=== PATIENT | male | born 1960 | race Caucasian/White ===

== ENCOUNTER 2020-04-07 15:31 | Emergency (ER) | payer OTHER ==
[~2020-04-07] VITALS: Ht 190.5 cm; Wt 67.6 kg
--- NOTE | 2020-04-07 15:34 | NUR ---
BIBA 860 from [facility] "hematuria/bloody urine", TO ER BED 10, HOOKED TO MONITOR, CHANGED TO HOSP GOWN, WARM BLANKET PROVIDED, PATIENT AAO x 3, BREATHING EVEN AND UNLABORED, PATIENT NOTED W J-TUBE, G-TUBE , COLOSTOMY AND SPINAL CORD STIMULATOR. DR HIRSCH AT BEDSIDE.
--- NOTE | 2020-04-07 15:39 | NUR ---
PATIENT NOTED WITH BLOODY SPUTUM, MADE MD AWARE
[2020-04-07] MEDS ORDERED: CEFEPIME 1 GM in IV D5W 50 ML IV ONE (16:00)
[2020-04-07] MEDS ORDERED: IV NS 0.9% 1,000 ML BAG IV ONE ×2 (16:00→22:00)
--- NOTE | 2020-04-07 16:11 | NUR ---
MOVE SHEET SUBMITTED TO ADMITTING AND CALLED FOR A TELE BED.
--- NOTE | 2020-04-07 16:15 | NUR ---
PT IS WHEELED TO CT SCAN VIA [facility].
[2020-04-07] MEDS ORDERED: LEVE500T9 GT (16:16)
[2020-04-07] MEDS ORDERED: AMIN30LI2 GT (16:16)
[2020-04-07] MEDS ORDERED: ENOX40DI SQ (16:16)
[2020-04-07] MEDS ORDERED: GABA-532 GT (16:16)
[2020-04-07] MEDS ORDERED: JEVITY GT (16:16)
[2020-04-07] MEDS ORDERED: OXYC1TAB12 GT (16:16)
[2020-04-07] MEDS ORDERED: TRAM50TA2 GT (16:16)
[2020-04-07] MEDS ORDERED: LACT10SO GT (16:16)
[2020-04-07] MEDS ORDERED: PROC25SU2 RC (16:16)
[2020-04-07] MEDS ORDERED: ONDA4TAB5 GT (16:16)
[2020-04-07] MEDS ORDERED: SCOP1PAT11 TD (16:16)
[2020-04-07] MEDS ORDERED: POLY17PO4 GT (16:16)
[2020-04-07] MEDS ORDERED: LIDO700A30 TP (16:16)
[2020-04-07] MEDS ORDERED: CITA20TA16 GT (16:16)
[2020-04-07] MEDS ORDERED: APIX5TAB GT (16:16)
[2020-04-07] MEDS ORDERED: TYL2T GT (16:16)
[2020-04-07] MEDS ORDERED: FINA5TAB11 GT (16:16)
[2020-04-07] MEDS ORDERED: IPRA3AMP23 IH (16:16)
[2020-04-07] MEDS ORDERED: ROSU10TA2 GT (16:16)
[2020-04-07] MEDS ORDERED: TAMS-12 GT (16:16)
[2020-04-07] MEDS ORDERED: GLYC2TAB21 GT (16:20)
[2020-04-07 16:30] LABS: BASOPHILS # (AUTO) 0.1 /CMM (0.0-0.2); BASOPHILS % (AUTO) 0.8 % (0.0-2.0); EOSINOPHILS % (AUTO) 1.5 % (0.0-6.0); HEMATOCRIT 33 % (39-51); HEMOGLOBIN 10.8 g/dL (13.5-17.5); LYMPHOCYTES # (AUTO) 0.3 /CMM (0.8-4.8); MEAN CORPUSCULAR HGB CONC 33 g/dl (31.0-36.0); MEAN CORPUSCULAR VOLUME 91 fL (80-96); MONOCYTES # (AUTO) 0.7 /CMM (0.1-1.30); MONOCYTES % (AUTO) 8.6 % (2.0-12.0); NEUTROPHILS # (AUTO) 7.4 /CMM (1.8-8.9); NEUTROPHILS % (AUTO) 85.1 % (43.0-81.0); PLATELET COUNT (AUTO) 343 /CMM (150-450); RED BLOOD CELL COUNT(AUTO) 3.62 MIL/uL (4.5-6.0); WHITE BLOOD COUNT (AUTO) 8.7 K/uL (4.3-11.0)
[2020-04-07 16:37] LABS: CALCIUM, SERUM 9.1 mg/dL (8.5-10.1); CARBON DIOXIDE 34 mmol/L (21-32); CHLORIDE 96 mmol/L (98-107); CREATININE 0.5 mg/dL (0.6-1.3); GLUCOSE 97 mg/dL (74-106); POTASSIUM 3.7 mmol/L (3.5-5.1); SODIUM SERUM 134 mmol/L (136-145); UREA NITROGEN, BLOOD 22 mg/dL (7-18)
--- NOTE | 2020-04-07 16:40 | NUR ---
URINE SAMPLE COLLECTED VIA STRAIGHT CATHETER. NOTED WITH CONRAD COLORED URINE, 400ML URINE COLLECTED.
[2020-04-07 16:43] LABS: ALANINE AMINOTRANSFERASE 52 U/L (12-78); ALBUMIN 2.6 g/dL (3.4-5.0); ALKALINE PHOSPHATASE 124 U/L (46-116); ASPARTATE AMINOTRANSFERASE 19 U/L (15-37); BILIRUBIN,DIRECT 0.1 mg/dL (0.0-0.2); BILIRUBIN,TOTAL 0.2 mg/dL (0.2-1.0); LIPASE 50 U/L (73-393); TOTAL PROTEIN, SERUM 6.9 g/dL (6.4-8.2)
--- NOTE | 2020-04-07 16:48 | NUR ---
COVID SWAB DONE AND SENT TO LAB
[2020-04-07 16:55] LABS: APPEARANCE,URINE Cloudy (CLEAR); BILIRUBIN,URINE Negative (NEGATIVE); BLOOD, URINE Large Ery/uL (NEGATIVE); COLOR,URINE Yellow (YELLOW); KETONES,URINE Negative (NEGATIVE); LEUKOCYTE ESTERASE ,URINE Negative (NEGATIVE); NITRITE, URINE Negative (NEGATIVE); PROTEIN,URINE 100 mg/dl (NEGATIVE); UGLUCOSE Negative (NEGATIVE)
--- NOTE | 2020-04-07 17:11 | NUR ---
SPOKE TO KAREY ([employer]ACH[facility] [employer] [employer] [facility]). [phone], PROVIDED WITH CLINICALS. WILL CALL BACK FOR TRANSFER INFORMATION.
[2020-04-07 17:12] LABS: BACTERIA,URINE Many /HPF (None Seen); SQUAMOUS EPITHELIAL CELL,UR Rare /HPF (None Seen); WBC,URINE 0-2 /HPF (0-3)
--- NOTE | 2020-04-07 17:17 | NUR ---
FAXED CLINICALS AND FACESHEET TO [facility]: C/O KAREY (MANAGER SCIENTIFIC): [phone]
--- NOTE | 2020-04-07 17:42 | NUR ---
SPOKE TO KAREY EXECUTIVE CASINO HOST, REQUESTS FOR RAPID COVID TEST TO DETERMINE WHERE PATIENT IS GOING TO BE ADMITTED. DR HIRSCH AWARE.
--- NOTE | 2020-04-07 18:05 | NUR ---
RAPID COVID SWAB DONE AND SENT TO LAB
--- NOTE | 2020-04-07 19:13 | NUR ---
REPORT GIVEN TO VINCENT ISAACS FOR BIBI
--- NOTE | 2020-04-07 19:15 | NUR ---
[facility]
--- NOTE | 2020-04-07 19:20 | NUR ---
PT REASSESSED. NO COMPLAINTS AT THIS TIME. VSS. NO ACUTE DISTRESS NOTED. WILL CONTINUE TO MONITOR
--- NOTE | 2020-04-07 19:20 | NUR ---
COVID RESULT STILL PENDING AT THIS TIME
--- NOTE | 2020-04-07 19:57 | NUR ---
CALLED FOR AN UPDATE.
[2020-04-07] MEDS ORDERED: KETOROLAC TROMETHAMINE INJ 30 MG/ML VIAL IV ONE (20:00)
[2020-04-07] MEDS ORDERED: KETOROLAC TROMETHAMINE 15 MG/ML VIAL ONE (20:04)
--- NOTE | 2020-04-07 20:07 | NUR ---
PT REFUSED TORADOL 15 MG IV. MADE AWARE
--- NOTE | 2020-04-07 20:08 | NUR ---
CALLED LAB FOR COVID RESULTS. STILL PENDING
--- NOTE | 2020-04-07 20:19 | NUR ---
NAPOLEON RETAIL SPECIALIST CALLED F/U ABOUT RAPID COVID TEST. STILL PENDING
[2020-04-07] MEDS ORDERED: oxyCODONE/APAP (5/325 MG) 1 UDTAB TABLET ONE (20:21)
--- NOTE | 2020-04-07 20:29 | NUR ---
LAB CALLED REGARDING COVID NEGATIVE RESULT.
[2020-04-07] MEDS ORDERED: oxyCODONE/APAP (5/325 MG) 1 UDTAB TABLET PO ONE (20:30)
--- NOTE | 2020-04-07 20:37 | NUR ---
CALLED [facility] SWING TENDER, KAREY FOR COVID RESULT
--- NOTE | 2020-04-07 20:44 | NUR ---
COVID RESULT FAXED TO [facility] [phone]
--- NOTE | 2020-04-07 21:17 | NUR ---
SPOKE W/ TOWING PILOT KAREY, [facility]
--- NOTE | 2020-04-07 21:18 | NUR ---
REFAXED CLINICALS TO [facility]
--- NOTE | 2020-04-07 21:31 | NUR ---
SPOKE W/ [facility] NURSE ANESTHETIST, KAREY. THEY WILL ARRANGE TRANSPORT FOR THE PT. PT IS GOING TO THE ER PER NURSE ANESTHETIST. NUMBER FOR REPORT : [phone]
--- NOTE | 2020-04-07 21:35 | NUR ---
PT'S HR AT 120'S. MADE AWARE. ORDERS RECEIVED
--- NOTE | 2020-04-07 21:41 | NUR ---
REPORT GIVEN TO FERNY VASQUEZ PRES FOR BIBI
[2020-04-07] MEDS ORDERED: LIDOCAINE 2% JEL UROJET 10 ML MM ONE (21:46)
--- NOTE | 2020-04-07 22:07 | NUR ---
PLACED CARLSON CATHETER 16 F. URINE OUTPUT OF 650 ML NOTED
--- NOTE | 2020-04-07 22:17 | NUR ---
[facility] 0100 ETA
[2020-04-07 23:27] VITALS: BP 120/65
--- NOTE | 2020-04-08 00:51 | NUR ---
ACCEPTING DR: DR OZUNA [facility]
--- NOTE | 2020-04-08 01:38 | NUR ---
PT TRANSFERRED TO [facility] IN STABLE CONDITION
== END 2020-04-08 01:43 | disposition short-term general hospital (02) ==
LOC: ER 15:45
DX: E86.0 Dehydration (principal); K59.00 Constipation, unspecified; J18.9 Pneumonia, unspecified organism; R04.2 Hemoptysis; R31.9 Hematuria, unspecified; N39.0 Urinary tract infection, site not specified; R91.8 Other nonspecific abnormal finding of lung field; Z93.1 Gastrostomy status; Z93.4 Other artificial openings of gastrointestinal tract status; R00.0 Tachycardia, unspecified; E41 Nutritional marasmus; Z68.1 Body mass index [BMI] 19.9 or less, adult; Z85.818 Personal history of malignant neoplasm of other sites of lip, oral cavity, and pharynx; Z92.21 Personal history of antineoplastic chemotherapy; Z92.3 Personal history of irradiation; Z85.038 Personal history of other malignant neoplasm of large intestine; F32.9 Major depressive disorder, single episode, unspecified; Z79.899 Other long term (current) drug therapy; Z79.01 Long term (current) use of anticoagulants
CPT/HCPCS: 36415; 51702; 71045; 74176; 80048; 80076; 81001; 83605; 83690; 84484; 85025; 85730; 87040; 87081; 87086; 87426; 93005; 96361 ×2; 96365; 99285; J0692; J3490; J7030 ×3; J7060; 81000-TC; C9803-CS; J1885; U0003-CS